=== PATIENT | female | born 2005 | race Caucasian/White ===

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

== ENCOUNTER 2024-07-27 09:27 | Emergency (ER) | payer MEDICAID, SELFPAY ==
[2024-07-27 09:36] VITALS: BP 116/89; PULSE 81; TEMP 36.7; O2SAT 96
--- NOTE | 2024-07-27 11:09 | CT_ITS ---
WS: [id number] CT ABDOMEN AND PELVIS WITH CONTRAST HISTORY: abd pain, LEFT lower quadrant pain TECHNIQUE: Imaging performed of the abdomen and pelvis with IV contrast. Single phase imaging of the abdomen. Coronal and sagittal reformats are submitted. All CT scans at [facility] use at least one of these dose optimization techniques: automated exposure control; mA and/or kV adjustment per patient size (includes targeted exams where dose is matched to clinical indication); or iterative reconstruction. IV CONTRAST: Omnipaque 350; 100 mL IV. Oral contrast: No DLP: 810.56 mGy.cm COMPARISON: 10/22/2023 Lower thorax: Lung bases are clear. Heart is normal size. No hiatal hernia. Liver/biliary system: Normal size with no intrahepatic dilatation. Gallbladder: Normal. No gallstones or wall thickening. No pericholecystic fluid. Pancreas: Normal size pancreas and pancreatic duct. No adjacent inflammation. Spleen: Normal size spleen. No mass or infarct. Adrenal glands: Normal. Right kidney: Horseshoe kidney. No obstruction. Left kidney: Horseshoe kidney. No obstruction. 8 mm cortical cyst upper kidney. Aorta: Normal. Lymphadenopathy: None. Free fluid: None. GI tract: Nondistended stomach. No small bowel obstruction. No colitis. Normal appendix. Abdominal wall: Unremarkable abdominal wall. No hernia. Pelvis: Small amount of free fluid in the pelvis. Small follicles within each ovary. No ovarian enlargement. Uterus is midline. Bones: Unremarkable. CT/CT abdomen pelvis w con* [id number] IMPRESSION: 1. Small amount of physiologic free fluid in the pelvis. May be from a rupture d ovarian cyst. 2. Normal appendix. 3. No colitis. 4. 

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
[2024-07-27] MEDS: ondansetron 2 mg/ML SDV 2 mL 4 MG IVP (11:38)
[2024-07-27] MEDS: morphine 4 mg/mL SDV 1 mL IVP (11:46)
[2024-07-27 11:48] VITALS: BP 139/75; PULSE 70; RESP 16; O2SAT 95
[2024-07-27 11:48] LABS: Basophils % 0.2 %; Eosinophils % 0.1 %; Hematocrit 42.1 % (36-47); Lymphocytes # 1.1 10^3/uL (1.5-6.5); Lymphocytes % 10.5 %; Mean Corpuscular HGB Conc 34.2 g/dL (30-55); Mean Corpuscular Hemoglobin 31.1 pg (27-33); Mean Corpuscular Volume 90.9 fl (85-98); Mean Platelet Volume 10.3 fL (7.4-10.4); Monocytes # 0.8 10^3/uL (0.2-0.9); Monocytes % 7.7 %; Neutrophils # 8.48 10^3/uL (1.8-8.0); Neutrophils % 81.3 %; Nucleated Red Blood Cells % 0 %; Platelet Count 336 10^3/cmm (157-399); Red Blood Count 4.63 10^6/uL (3.85-5.65); Red Cell Distribution Width 12.3 % (12.1-15.1); White Blood Count 10.43 10^3/uL (4.5-13.0)
[2024-07-27 12:06] LABS: HCG, Serum Qual Negative (Negative)
[2024-07-27 12:08] LABS: Alanine Aminotransferase 18 U/L (0-33); Albumin Level 4.4 g/dL (3.5-5.2); Alkaline Phosphatase 82 U/L (35-105); Aspartate Amino Transferase 14 U/L (0-32); Blood Urea Nitrogen 7 mg/dL (6-20); Calcium 9.3 mg/dL (8.5-10.5); Carbon Dioxide 22 mmol/L (22-29); Chloride 105 mmol/L (98-107); Creatinine Clr Calc Pharmacy 176.0218; Globulin 2.9 g/dL (1.3-4.6); Glomerular Filtration Rate 127.5 mL/min (90-130); Glucose 98 mg/dL (65-115); Lipase 21 U/L (13-60); Osmolality Calculated 284 mOsm/kg (285-295); Sodium 138 mmol/L (136-145); Total Bilirubin 0.3 mg/dL (0.15-1.2); Total Protein 7.3 g/dL (6.6-8.7)
[2024-07-27 12:35] VITALS: PULSE 68; RESP 16; O2SAT 98
[2024-07-27 12:54] LABS: Bilirubin Urine Negative (Negative); Blood Urine Negative (Negative); Glucose Urine UA Negative (Normal); Ketones Urine Trace (Negative); Leukocyte Esterase Urine Negative (Negative); Nitrate Urine Negative (Negative); Protein Urine Trace (Negative); Urine Appearance Cloudy (CLEAR); Urine Color Yellow (Yellow); pH Urine 8.5 (5-7)
[2024-07-27] MEDS: iohexol 350 mg/mL 500 mL Btl (per mL) IV (12:54)
[2024-07-27 12:59] LABS: Add Urine Microscopic? YES; Bacteria Urine 3+ /hpf; Hyaline Casts Urine 2.87 /lpf; RBC Urine 0-2 /hpf (0-2); WBC Urine 0-5 /hpf (0-5)
[2024-07-27 13:00] LABS: Specific Gravity, Urine 1.037 (1.005-1.030)
[2024-07-27 13:09] VITALS: BP 122/68; PULSE 74; RESP 16; O2SAT 96
== END 2024-07-27 13:13 | disposition home or self-care (01) ==
PROVIDERS: Physician Assistant; Emergency Provider Emergency Medicine; PCP Nurse Practitioner Family
DX: R11.10 Vomiting, unspecified (principal); R10.9 Unspecified abdominal pain
CPT/HCPCS: 36415; 74177; 80053; 81001; 83690; 84703; 85025; 96374; 96375; 99285; J2270; J2405

== ENCOUNTER 2025-03-16 22:18 | Emergency (ER) | payer MEDICAID, SELFPAY ==
--- OUTSIDE RECORDS SUMMARY | 2025-03-15 14:00 | XMS_ITS | Encounter Summary ---
Author Organization [facility] Address [address] [place] [address] Care Team Providers Care Access Control Officer Name Role Phone Marielos Carrasco Primary Care Provider Reason for Visit * Reason Comments Vomiting Pt states vomiting, headaches, upset stomach, and sinus issues the last 2 days Encounter Details Date Type Department Care Team ([facility] st Contact Info) Description 03/15/2025 2:00 PM CDT Office Visit [facility] [place] [address] [place] [address] [facility] [address] [place] [address] Acute tonsillitis due to other [...] on file Legal Sex Female 6:22 AM HEAD OF STORE OPERATIONS Gender Identity Not on file Sexual Orientation [...] this encounter Progress Notes * Alexy Summers, PROSTHODONTIST - 03/15/2025 2:12 PM CDT Chief Complaint [...] author of this note, patient (or authorized compliance representative), and all other persons present consent to the audio recording of this visit for charting documentation purposes. This note was automatically generated, edited by a Quality Cryptography Teacher, and finalized by JULIANNE Anderson. documented in this encounter Plan of Treatment Upcoming Encounters Date Type Department Care Team (Late st Contact Info) Description 05/13/2025 9:40 AM HEAD OF STORE OPERATIONS Office Visit [facility] [address] [place] [facility] [place] [id number] [place], JULIANNE [address] [place] [facility] [place] [address] Pending Results Name Type Priority Associated Diagnoses Date /Time THROAT CULTURE Microbiology Routine Acute tonsillitis due to other specified organisms 03/15/2025 2:27 PM CDT Scheduled Orders Name Type Priority Associated Diagnoses [...] due to other specified organisms Ordered: 03/15/2025 THROAT CULTURE Microbiology Routine Acute tonsillitis due to other specified organisms Expected: 03/15/2025, Expires: 03/15/2026 documented as of this encounter Visit Diagnoses Diagnosis Acute tonsillitis due to other specified organisms- Primary documented in this encounter Additional Health Concerns Assessment Noted Time PHQ-9 Depression Total Score: 1 12/28/19 25 3:41 PM CDT documented as of this encounter Care Teams Access Control Officer Relationship Specialty Start Date End Date Marielos Carrasco DO [address] [facility] [place] [id number] PCP - General Family Practice 11/20/23 documented as of this encounter
--- OUTSIDE RECORDS SUMMARY | 2025-03-16 22:26 | XMS_ITS | Encounter Summary ---
Author Organization [facility] Address [address] [place] [address] Care Team Providers Care Transmissions Systems Operator Name Role Phone Silverio Brink MD Primary Care Provider [phone] Reason for Referral * Radiology Services (Routine) - Closed Specialty Diagnoses / Procedures Referred By Kar levin Referred To Contact Diagnoses Melena Unspecified abdominal pain Constipation, unspecified Gastro-esophageal reflux disease without esophagitis Nausea Procedures XR ABDOMEN 1 VW Laura Velasco DO Phone: tel: fax: [facility] Centralized Scheduling [address] [facility] [address] [place] [address] Phone: tel: fax: Referral ID Status Reason Start Date Expiration Date V isits Requested Visits Authorized [id number] Closed [facility] View CTS to Schedule ([facility]) 10/07/2019 11/06/2020 1 1 Encounter Details Date Type Department Care Team ([facility] st Contact Info) Description 10/07/2019 Ancillary Orders [facility] [address] [facility] [address] [place] [address] Laura Velasco DO [address] [place] [address] [address] [place] [address] Melena; Unspecified abdominal pain; Constipation, unspecified; Gastro-esophageal reflux disease without esophagitis; Nausea Social History Tobacco Use Types Packs/Day Years Used Date Smoking Tobacco: Never Smokeless Tobacco: Never Alcohol Use Standard Drinks/Week Comments No 0 (1 standard drink = 0.6 oz pur e alcohol) Comments No Sex and Gender Information Value Date Recorded Sex Assigned at Not on file Legal Sex Female 12:43 PM OPTICAL FABRICATOR Gender Identity Not on file Sexual Orientation Not on file Occupation Industry Job Start Date Job End Date Not on file Not on file Not on file Not on file COVID-19 Exposure Response Date Recorded In the last month, have you been in contact with someone who was confirmed or suspected to have Coronavirus / COVID-19? No / Unsure 10/07/2019 1:23 PM CDT documented as of this encounter Plan of Treatment Not on file documented as of this encounter Results * XR ABDOMEN 1 VW (10/07/2019 1:42 PM CDT) Anatomical Region Laterality Modality Abdomen Computed Radiogr aphy 10/07/2019 1:42 PM CDT Impressions 10/07/2019 2:43 PM CDT IMPRESSION: Nonspecific nonobstructive bowel gas pattern. Narrative 10/07/2019 2:43 PM CDT Exam: XR ABDOMEN 1 VW Date/Time of Exam: 10/07/2019 1:42 PM Reason For Exam: See Diagnosis. Diagnosis: Melena; Unspecified abdominal pain; Constipation, unspecified; Gastro-esophageal reflux disease without esophagitis; Nausea. Comparison: 10/09/2011. Findings: he bowel gas pattern is nonspecific without definitive radiographic evidence of obstruction. There is a large amount of stool. No gross organomegaly, mass, free intraperitoneal air or discrete pathologic urinary tract calcifications are identified. The osseous structures appear grossly intact. Procedure Note Nathaniel Monique, DO - 10/07/2019 Exam: XR ABDOMEN 1 VW Date/Time of Exam: 10/07/2019 1:42 PM Reason For Exam: See Diagnosis. Diagnosis: Melena; Unspecified abdominal pain; Constipation, unspecified; Gastro-esophageal reflux disease without esophagitis; Nausea. Comparison: 10/09/2011. Findings: he bowel gas pattern is nonspecific without definitive radiographic evidence of obstruction. There is a large amount of stool. No gross organomegaly, mass, free intraperitoneal air or discrete pathologic urinary tract calcifications are identified. The osseous structures appear grossly intact. IMPRESSION: Nonspecific nonobstructive bowel gas pattern. Laura Velasco DO [facility] Final Result documented in this encounter Visit Diagnoses Diagnosis Melena Blood in stool Unspecified abdominal pain Constipation, unspecified Gastro-esophageal reflux disease without esophagitis Esophageal reflux Nausea Nausea alone Melena Blood in stool Unspecified abdominal pain Constipation, unspecified Gastro-esophageal reflux disease without esophagitis Esophageal reflux Nausea Nausea alone documented in this encounter Care Teams Transmissions Systems Operator Relationship Specialty Start Date End Date Silverio Brink MD PCP - General Internal Medicine 02/05/12 documented as of this encounter
--- OUTSIDE RECORDS SUMMARY | 2025-03-16 22:26 | XMS_ITS | Clinical Summary ---
Author Organization [facility] Address [address] [place] [address] Care Team Providers Care Concrete Layer Name Role Phone Silverio Brink MD Primary Care Provider [phone] Allergies No known active allergies Medications guanFACINE SR 24 hour (INTUNIV) 1 mg Oral tablet Take 4 mg by mouth daily . Active citalopram (CELEXA) 10 mg Oral tablet Take 20 mg by mouth daily . Active methylphenidate (CONCERTA) 36 mg Extended Release tablet Take 160 mg by mouth daily early childhood coordinator. Active diphenhydrAMINE (BENADRYL) 50 mg Tablet Take 25 mg by mouth every 6 hours as needed for Allergies. Active predniSONE (DELTASONE) 20 mg tablet Take 1 Tablet (20 mg) by mouth 2 times daily. 10 Tablet 0 02/22/2016 Active Social History Tobacco Use Types Packs/Day Years Used Date Smoking Tobacco: Never Smokeless Tobacco: Never Alcohol Use Standard Drinks/Week Comments No 0 (1 standard drink = 0.6 oz pur e alcohol) Comments No Sex and Gender Information Value Date Recorded Sex Assigned at Not on file Legal Sex Female 12:43 PM LAB SUPPORT SERVICE TECH Gender Identity Not on file Sexual Orientation Not on file Occupation Industry Job Start Date Job End Date Not on file Not on file Not on file Not on file Last Filed Vital Signs Vital Sign Reading Time Taken Comments Blood Pressure 139/60 02/22/2016 10:51 AM CDT Pulse 99 02/22/2016 10:28 AM CDT Temperature 37.2 C (99 F) 02/22/2016 10:51 AM CDT Respiratory Rate 20 02/22/2016 10:51 AM CDT Oxygen Saturation 98% 02/22/2016 10:51 AM CDT Inhaled Oxygen Concentration - - Weight 53.5 kg (118 lb) 02/22/2016 9:25 AM CDT Height 154.9 cm (5' 1 ) 01/08/2016 11:35 AM CDT Body Mass Index - - Plan of Treatment Health Maintenance Due Date Last Done Comments CHLAMYDIA SCREENING (ANNUAL) 11-24 YEARS 2015 HPV VACCINES (1 - 3-dose series) 2019 DTAP/TDAP/TD VACCINES (1 - Tdap) 2023 HEPATITIS B VACCINES (1 of 3 - 19+ 3-dose series) 03/24 INFLUENZA VACCINE (#1) 2025 Insurance [place]ID [place] Care Teams Concrete Layer Relationship Specialty Start Date End Date Silverio Brink MD PCP - General Internal Medicine 02/05/12
--- OUTSIDE RECORDS SUMMARY | 2025-03-16 22:26 | XMS_ITS | Clinical Summary ---
Author Organization [facility] Address [address] Munozn: [place] [address] Care Team Providers Care Manager Nicu Name Role Phone Marielos Carrasco Primary Care Provider Allergies Active Allergy Reactions Criticality Noted Date Comments Alpha-Gal (Fubweupxs-Szdll-6,3-Galactose) Abdominal Pain Low 12/01/2023 Medications citalopram 20 mg tablet Take 20 mg by mouth daily at bedtime. Active ARIPiprazole (ABILIFY) 5 mg tabletIndications :PTSD (post-traumatic stress disorder),Attenti on deficit hyperactivity disorder (ADHD), combined type,Borderline personality disorder (CMS/HCC) Take 1 Tablet (5 mg) by mouth daily. 100 Tablet 3 02/11/20 25 Active Drospirenone-Ethi nyl estradiol (Angelika, 28,) 3-0.02 mg tabletIndications :Secondary dysmenorrhea Take 1 Tablet by mouth daily. 28 Tablet 12 02/11/20 25 Active Additional Information Patient not taking.Reported on 03/15/2025 EPINEPHrine (EPIPEN) 0.3 mg/0.3 mL Auto-InjectorIndi cations:Allergy to alpha-gal Inject 0.3 mL (0.3 mg) by intramuscular injection 1 time daily as needed for Anaphylaxis. 2 Each 02/11/20 Active Additional Information Patient not taking.Reported on 03/15/2025 albuterol sulfate HFA 90 mcg/actuation aerosol inhalerIndication s:Mild asthma, unspecified whether complicated, unspecified whether persistent Take 2 Puffs by inhalation every 6 hours as needed for Wheezing or Shortness of Breath. 8.5 Gram 1 02/16/20 25 Active amoxicillin (AMOXIL) 500 mg TabletIndications :Acute tonsillitis due to other specified organisms Take 1 Tablet (500 mg) by mouth every 12 hours for 10 days. 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 Generalized abdominal pain 11/20/2023 PTSD (post-traumatic stress disorder) 10/19/2023 Resolved Problems Problem Noted Date Diagnosed Date Resolved Date Sprain of left ankle 09/25/2023 024 Encounters Date Type Department Care Team Description 03/15/2025 2:00 PM CDT Office Visit [facility] [address] [place] [address] Alexy Summers FNP Acute tonsillitis due to other specified organisms (Primary Dx) 03/15/2025 Nurse Triage [facility] [address] [place] [address] Marielos Carrasco DO 02/23/2025 External Device Data STL ABSTRACTION Provider, Abstract 02/16/2025 External Device Data STL ABSTRACTION Provider, Abstract 02/10/2025 12:40 PM CDT Office Visit [facility] [address] [facility] [place] [address] Alexy Summers FNP Secondary dysmenorrhea (Primary Dx); Borderline personality disorder (CMS/HCC) 02/10/2025 Telephone [facility] [address] [facility] [place] [address] Marielos Carrasco, Medication Assistance 02/10/2025 Refill [facility] [address] [facility] [place] [id number] Alexy Summers, JULIANNE PTSD (post-traumatic stress disorder); Attention deficit hyperactivity disorder (ADHD), combined type; Borderline personality disorder (CMS/HCC) 02/09/2025 External Device Data STL ABSTRACTION Provider, Abstract 01/05/2025 External Device Data STL ABSTRACTION Provider, Abstract 01/05/2025 External Device Data STL ABSTRACTION Provider, Abstract 01/05/2025 External Device Data STL ABSTRACTION Provider, Abstract 01/05/2025 External Device Data STL ABSTRACTION Provider, Abstract 12/29/2024 Results Follow-Up [address] [address] Lynette Velazquez FNP CBC WITH DIFFERENTIAL, COMPREHENSIVE METABOLIC PANEL 12/27/2024 3:40 PM CDT Office Visit [address] [id number] Lynette Velazquez FNP Nausea and vomiting, unspecified vomiting type (Primary Dx); Mild asthma, unspecified whether complicated, unspecified whether persistent 12/21/2024 External Device Data STL ABSTRACTION Provider, Abstract from Last 3 Months Social History Tobacco Use Types Packs/Day Years Used Date Smoking Tobacco: Every Day Cigarettes Smokeless Tobacco: Never Tobacco Cessation:Ready to Q uit: Not Asked; Counseling Given: Not Answered Comments:Stated just quit cigarettes within the last week Alcohol Use Standard Drinks/Week Comments No 0 (1 standard drink = 0.6 oz pur e alcohol) Feeling Safe Answer Date Recorded Are you in a relationship wi th someone who hurts you emotionally and/or physically? No 08/29/2024 Comments No Sex and Gender Information Value Date Recorded Sex Assigned at Not on file Legal Sex Female 6:22 AM LINK TRAINER Gender Identity Not on file Sexual Orientation Not on file Last Filed Vital Signs [...] Mass Index 42.43 03/15/2025 1:46 PM CDT Plan of Treatment Upcoming Encounters Date Type Department Care Team (Late st Contact Info) Description 05/13/2025 9:40 AM LINK TRAINER Office Visit [facility] [address] [place] [address] Peace, September, THEATRICAL SCENIC DESIGNER [address] [place] [address] Health Maintenance Due Date Last Done Comments CHLAMYDIA SCREENING (ANNUAL) 11-24 YEARS 2015 HPV VACCINES (1 - 3-dose series) 2019 DTAP/TDAP/TD VACCINES (1 - Tdap) 2023 HEPATITIS B VACCINES (1 of 3 - 19+ 3-dose series) 03/24 Preventative Visit-Managed Medicaid 2023 INFLUENZA VACCINE (#1) 2025 Procedures Procedure Name Priority Date/Time Associated Diagnosis Comments COMPREHENSIVE METABOLIC PANEL Routine 12/27/2024 4:09 PM CDT Nausea and vomiting, unspecified vomiting type CBC WITH DIFFERENTIAL Routine 12/27/2024 4:09 PM CDT Nausea and vomiting, unspecified vomiting type from Last 3 Months Results * CBC WITH DIFFERENTIAL (12/27/2024 4:09 PM CDT) WBC 9.5 3.8 - 10.8 Thousand/u L [facility] RBC 4.66 3.80 - 5.10 Million/uL [facility] HEMOGLOBIN 14.8 11.7 - 15.5 g/dL [facility] HEMATOCRIT 44.4 35.0 - 45.0 % [facility] MCV 95.3 80.0 - 100.0 fL [facility] MCH 31.8 27.0 - 33.0 pg [facility] MCHC 33.3 32.0 - 36.0 g/dL [facility] Comment: For adults, a slight decrease in the calculated MCHC value (in the range of 30 to 32 g/dL) is most likely not clinically significant; however, it should be interpreted with caution in correlation with other red cell parameters and the patient's clinical condition. RDW 12.9 11.0 - 15.0 % [facility] PLATELETS 364 140 - 400 Thousand/u L [facility] MPV 10.5 7.5 - 12.5 fL [facility] NEUTROPHIL ABSOLUTE 6,460 1,500 - 7,800 cells/uL [facility] LYMPHOCYTE ABSOLUTE 2,138 850 - 3,900 cells/uL [facility] MONOCYTE ABSOLUTE 817 200 - 950 cells/uL [facility] EOSINOPHIL ABSOLUTE 57 15 - 500 cells/uL [facility] BASOPHILS ABSOLUTE 29 0 - 200 cells/uL [facility] NEUTROPHIL 68 % [facility] LYMPHOCYTES 22.5 % [facility] MONOCYTE 8.6 % [facility] EOSINOPHILS 0.6 % [facility] BASOPHILS 0.3 % [facility] Comment: Test Performed at: [facility] [address] [place] [address] Nirmal Mendez MD Blood 12/27/2024 4:09 PM CDT 12/29/2024 3:08 AM CDT us Lynette Velazquez THEATRICAL SCENIC DESIGNER HEMATOLOGY ORDERABLES Final Result [facility] [phone] [facility] [id number] [facility] [place] [address] * COMPREHENSIVE METABOLIC PANEL (12/27/2024 4:09 PM CDT) GLUCOSE 84 65 - 99 mg/dL [facility] Comment: Fasting reference interval BUN 12 7 - 25 mg/dL [facility] CREATININE 0.87 0.50 - 0.96 mg/dL [facility] GFR 98 > OR = 60 mL/min/1. 73m2 [facility] BUN/CREAT RATIO SEE NOTE: 6 - 22 (calc) [facility] Comment: Not Reported: BUN and Creatinine are within reference range. SODIUM 139 135 - 146 mmol/L [facility] POTASSIUM 4.2 3.5 - 5.3 mmol/L [facility] CHLORIDE 107 98 - 110 mmol/L [facility] CO2 23 20 - 32 mmol/L [facility] CALCIUM 9.5 8.6 - 10.2 mg/dL [facility] TOTAL PROTEIN 7.0 6.1 - 8.1 g/dL [facility] ALBUMIN 4.4 3.6 - 5.1 g/dL [facility] GLOBULIN 2.6 1.9 - 3.7 g/dL (calc) [facility] ALBUMIN/GLOBULIN RATIO 1.7 1.0 - 2.5 (calc) [facility] BILIRUBIN TOTAL 0.4 0.2 - 1.2 mg/dL [facility] ALKALINE PHOSPHATASE 81 31 - 125 U/L [facility] AST 14 10 - 30 U/L [facility] ALT 20 6 - 29 U/L [facility] Comment: Test Performed at: [facility] [address] [place] [address] Nirmal Mendez MD Blood 12/27/2024 4:09 PM CDT 12/29/2024 3:08 AM CDT Lynette Velazquez THEATRICAL SCENIC DESIGNER CHEMISTRY ORDERABLES Final Result [facility] [phone] [facility] [address] [place] [address] from Last 3 Months Insurance [place] Care Teams Manager Nicu Relationship Specialty Start Date End Date Marielos Carrasco DO [address] [place] [address] PCP - General Family Practice 11/20/23
--- OUTSIDE RECORDS SUMMARY | 2025-03-16 22:26 | XMS_ITS | Encounter Summary ---
Author Organization [facility] Address [address] [place] [address] Care Team Providers Care Hand Roller Name Role Phone Marielos Carrasco DO Primary Care Provider Reason for Visit * Reason Comments Clinical Consult Before Scheduling Encounter Details Date Type Department Care Team (Late st Contact Info) Description 03/15/2025 Nurse Triage [facility] [place] [address] [place] [address] Marielos Carrasco DO [address] [place] [address] Social History Tobacco Use Types Packs/Day Years [...] on file Legal Sex Female 6:22 AM SIGNAL HELPER Gender Identity Not on file Sexual Orientation Not on file documented as of this encounter Miscellaneous Notes * Telephone Encounter - Lauren Pringle RN - 03/15/2025 11:45 AM CDT Reason for Disposition Patient wants to be seen Protocols used: Influenza (Flu) - Acbmasir-I-MY Patient reports having nausea, vomiting, headache, sinus congestion, and she believes a fever but doesn't have a way to check it. Is requesting appointment to be evaluated for the flu. Appointment arranged, advised patient to wear mask for appointment. See Today or Tomorrow in Office * Telephone Encounter - Halley Borges - 03/15/2025 11:42 AM CDT Copied from [facility] #[id number]. Topic: Symptomatic Care >> Mar 15, 2025 11:38 AM Halley Stephenson wrote: Has this patient seen any provider (current or former) at the requested clinic in the past? Yes, Select the appropriate age range and symptom Patient has symptoms and is seeking care. Caller Name: BAR Callback Number: [phone] Call Notes: Patient said she is having vomiting , nausea, sinus issues, chills and headache. Age Range/Symptom: Adult: 18+ & not High Risk Upper respiratory symptoms (cold, cough, COVID, fever, flu, hay fever, sinus problems, seasonal allergies Does patient have any of the following other urgent symptoms: Headache or Migraine - sudden onset and severe Is there an encounter open? No Transferred to Oscar Yuan answered call. Yes, Remind caller to have the patient wear a mask when entering a [facility] (or any healthcare) facility. documented in this encounter Plan of Treatment Upcoming Encounters Date Type Department Care Team (Late st Contact Info) Description 05/13/2025 9:40 AM SIGNAL HELPER Office Visit [facility] [place] [address] [place] [address] PeaceSeptember, BUS AND TROLLEY INSPECTING DISPATCHER [address] [facility] [phone] documented as of this encounter Visit Diagnoses Not on filedocumented in this encounter Additional Health Concerns Assessment Noted Time PHQ-9 Depression Total Score: 1 12/28/19 25 3:41 PM CDT documented as of this encounter Care Teams Hand Roller Relationship Specialty Start Date End Date Marielos Carrasco DO [address] [place] [address] PCP - General Family Practice 11/20/23 documented as of this encounter
--- OUTSIDE RECORDS SUMMARY | 2025-03-16 22:26 | XMS_ITS | Encounter Summary ---
Author Organization [facility] Address [address] [place] [address] Care Team Providers Care Medical Affairs Specialist Name Role Phone Silverio Brink MD Primary Care Provider [phone] Encounter Details Date Type Department Care Team (Late st Contact Info) Description 10/09/2011 [facility] [place] [address] [place] [phone] Danae Steele, NUMERICAL CONTROL LATHE OPERATOR [address] [place] [phone] Diarrhea Social History Tobacco Use Types Packs/Day Years Used Date Smoking Tobacco: Never Assessed Comments Unknown Sex and Gender Information Value Date Recorded Sex Assigned at Not on file Legal Sex Female 12:43 PM SUPERVISOR COLOR PASTE MIXING Gender Identity Not on file Sexual Orientation Not on file documented as of this encounter Plan of Treatment Not on file documented as of this encounter Results * XR ABDOMEN 1 VW (10/09/2011 2:12 PM CDT) Anatomical Region Laterality Modality Abdomen Computed Radiogr aphy 10/09/2011 2:08 PM CDT Narrative 10/10/2011 9:27 AM CDT Supine abdomen view 1408 hours 09 October 2011 shows moderate fecal artifact in the left colon and rectosigmoid with minimal fecal artifact in the right colon. There is some gas in the right mid abdomen probably representing small bowel gas, although no obstructive distention is seen. No abdominal masses or calculi are seen. Bony structures appear normal. IMPRESSION 1. slightly increased record residual predominately in the rectosigmoid 2. no obstructive distention seen 3. minimal small bowel gas noted Procedure Note Walter Moore MD - 10/10/2011 Supine abdomen view 1408 hours 09 October 2011 shows moderate fecal artifact in the left colon and rectosigmoid with minimal fecal artifact in the right colon. There is some gas in the right mid abdomen probably representing small bowel gas, although no obstructive distention is seen. No abdominal masses or calculi are seen. Bony structures appear normal. IMPRESSION 1. slightly increased record residual predominately in the rectosigmoid 2. no obstructive distention seen 3. minimal small bowel gas noted us Danae G Ivette NUMERICAL CONTROL LATHE OPERATOR DIAGNOSTIC IMAGING ORDERABLES F inal Result documented in this encounter Visit Diagnoses Diagnosis Diarrhea Diarrhea documented in this encounter Care Teams Medical Affairs Specialist Relationship Specialty Start Date End Date Silverio Brink MD PCP - General Internal Medicine 02/05/12 documented as of this encounter
[2025-03-16 22:35] VITALS: BP 146/97; PULSE 88; RESP 18; TEMP 36.9; O2SAT 97; BMI 42.4
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
[2025-03-16] MEDS: ondansetron 2 mg/ML SDV 2 mL 4 MG IVP (23:08)
[2025-03-16 23:09] VITALS: BP 133/73; PULSE 78; O2SAT 99
[2025-03-16 23:09] LABS: Hematocrit 40.3 % (36-47); Hemoglobin 13.80 g/dL (12.4-14.8); Mean Corpuscular HGB Conc 34.2 g/dL (30-55); Mean Corpuscular Hemoglobin 30.7 pg (27-33); Mean Corpuscular Volume 89.8 fl (85-98); Nucleated Red Blood Cells % 0 %; Platelet Count 319 10^3/cmm (157-399); Red Blood Count 4.49 10^6/uL (3.85-5.65); White Blood Count 11.89 10^3/uL (4.5-13.0)
[2025-03-16 23:24] LABS: HCG, Serum Qual Negative (Negative)
[2025-03-17 00:05] LABS: Alanine Aminotransferase 17 U/L (0-33); Albumin Level 4.5 g/dL (3.5-5.2); Alkaline Phosphatase 83 U/L (35-105); Anion Gap 14.3 (5-19); Aspartate Amino Transferase 12 U/L (0-32); Blood Urea Nitrogen 9 mg/dL (6-20); Calcium 9.2 mg/dL (8.5-10.5); Carbon Dioxide 25 mmol/L (22-29); Chloride 103 mmol/L (98-107); Creatinine Clr Calc Pharmacy 137.4783; Globulin 3.0 g/dL (1.3-4.6); Glucose 85 mg/dL (65-115); Lipase 16 U/L (13-60); Osmolality Calculated 286 mOsm/kg (285-295); Potassium 3.3 mmol/L (3.5-5.1); Sodium 139 mmol/L (136-145); Total Protein 7.5 g/dL (6.6-8.7)
[2025-03-17 00:29] VITALS: BP 131/72; PULSE 78; O2SAT 98
== END 2025-03-17 00:35 | disposition home or self-care (01) ==
PROVIDERS: Emergency Provider Emergency Medicine; PCP Nurse Practitioner Family
DX: R10.84 Generalized abdominal pain (principal)
CPT/HCPCS: 80053; 83690; 84703; 85025; 96361; 96374; 96375; 99284; J1885; J2405; J7030

== ENCOUNTER 2025-03-17 15:00 | Emergency (ER) | payer MEDICAID, SELFPAY ==
--- OUTSIDE RECORDS SUMMARY | 2025-03-15 14:00 | XMS_ITS | Encounter Summary ---
Author Organization [facility] Address [address] [place] [address] Care Team Providers Care Instructor Hairspring Name Role Phone Marielos Carrasco Primary Care Provider Reason for Visit * Reason Comments Vomiting Pt states vomiting, headaches, upset stomach, and sinus issues the last 2 days Encounter Details Date Type Department Care Team ([facility] st Contact Info) Description 03/15/2025 2:00 PM CDT Office Visit [facility] [place] [address] [place] [address] [facility] [address] [place] [address] Acute tonsillitis due to other specified organisms (Primary Dx) Social History Tobacco Use Types Packs/Day Years Used Date Smoking Tobacco: Every Day Cigarettes Smokeless Tobacco: Never Comments:Stated just quit ci garettes within the last week Alcohol Use Standard Drinks/Week Comments No 0 (1 standard drink = 0.6 oz pur e alcohol) Feeling Safe Answer Date Recorded Are you in a relationship wi th someone who hurts you emotionally and/or physically? No 08/29/2024 Comments No Sex and Gender Information Value Date Recorded Sex Assigned at Not on file Legal Sex Female 6:22 AM WIND DEVELOPMENT DIRECTOR Gender Identity Not on file Sexual Orientation Not on file documented as of this encounter Last Filed Vital Signs Vital Sign Reading Time Taken Comments Blood Pressure 128/66 03/15/2025 1:46 PM CDT Pulse 100 03/15/2025 1:46 PM CDT Temperature 36.1 C (97 F) 03/15/2025 1:46 PM CDT Respiratory Rate 18 03/15/2025 1:46 PM CDT Oxygen Saturation 96% 03/15/2025 1:46 PM CDT Inhaled Oxygen Concentration - - Weight 112.1 kg (247 lb 3.2 oz) 03/15/2025 1:46 PM CDT Height 162.6 cm (5' 4 ) 03/15/2025 1:46 PM CDT Body Mass Index 42.43 03/15/2025 1:46 PM CDT documented in this encounter Progress Notes * Alexy Summers, BOLTING MACHINE OPERATOR - 03/15/2025 2:12 PM CDT Chief Complaint Patient presents with Vomiting Pt states vomiting, headaches, upset stomach, and sinus issues the last 2 days Patient Active Problem List Diagnosis Code PTSD (post-traumatic stress disorder) F43.10 ADHD (attention deficit hyperactivity disorder) F90.9 Borderline personality disorder (CMS/HCC) F60.3 Sensory integration dysfunction F88 Generalized abdominal pain R10.84 Allergy to alpha-gal 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 She reports no recent sick contacts, except for a brief interaction with a neighbor a week ago. In addition to these symptoms, she is experiencing a sore throat, mildcough, and slight ear discomfort. She also mentioned attempting self-cleaning of her ears. 10 point review of systems is otherwise negative except as mentioned above. Past Medical History: Diagnosis Date ADHD (attention deficit hyperactivity disorder) Borderline personality disorder (CMS/HCC) PTSD (post-traumatic stress disorder) Sensory integration dysfunction Current Outpatient Medications Medication Instructions albuterol sulfate HFA 90 mcg/actuation aerosol inhaler 2 Puffs, Inhalation, EVERY 6 HOURS PRN amoxicillin (AMOXIL) 500 mg, Oral, EVERY 12 HOURS (BlD) ARIPiprazole (ABILIFY) 5 mg, Oral, DAILY citalopram (CELEXA) 20 mg, DAILY AT BEDTIME Drospirenone-Ethinyl estradiol (Angelika, 28,) 3-0.02 mg tablet 1 Tablet, Oral, DAILY EPINEPHrine (EPIPEN) 0.3 mg, IM, DAILY PRN Past Surgical History: Procedure Laterality Date PT DENIES RELEVANT SURGICAL HISTORY Past social, family, and medical history reviewed. BP 128/66 Pulse 100 Temp 97 ??F (36.1 ??C) Resp 18 Ht 5' 4 (1.626 m) Wt 112.1 kg (247 lb3.2 oz) SpO2 96% BMI 42.43 kg/m?? Physical Exam Constitutional: Appearance: Normal appearance. HENT: Right Ear: Tympanic membrane, ear canal and external ear normal. There is no impacted cerumen. Left Ear: Tympanic membrane, ear canal and external ear normal. There is no impacted cerumen. Nose: No congestion. Mouth/Throat: Mouth: Mucous membranes are moist. Pharynx: Posterior oropharyngeal erythema present. Tonsils: Tonsillar exudate present. 1+ on the right. Eyes: Conjunctiva/sclera: Conjunctivae normal. Pupils: Pupils are equal, round, and reactive to light. Cardiovascular: Rate and Rhythm: Normal rate and regular rhythm. Heart sounds: No murmur heard. Pulmonary: Effort: Pulmonary effort is normal. No respiratory distress. Musculoskeletal: General: Normal range of motion. Skin: General: Skin is warm and dry. Neurological: Mental Status: She is alert and oriented to person, place, and time. Psychiatric: Mood and Affect: Mood normal. Behavior: Behavior normal. ICD-10-CM ICD-9-CM 1. Acute tonsillitis due to other specified organisms J03.80 463 POC COVID-19 ANTIGEN POC INFLUENZA A AND B ANTIGEN POC RAPID STREP A ANTIGEN THROAT CULTURE amoxicillin (AMOXIL) 500 mg Tablet Assessment & Plan Pharyngitis - Symptoms: Sore throat, mild cough, throat erythema with white spots - Normal heart, lung, and ear exam - POC strep A, COVID-19, and influenza all chemic negative - Due to physical examination of inflamed throat with exudate, will send throat culture off for further testing - Prescribed amoxicillin BID for 10 days - Symptom management: ibuprofen or Tylenol, salt water gargles, hydration - Work note provided Follow-up - Throat culture results expected by later this week; discontinue antibiotic if negative JO Sahu The author of this note, patient (or authorized registration representative), and all other persons present consent to the audio recording of this visit for charting documentation purposes. This note was automatically generated, edited by a Quality Route Sales Person, and finalized by JULIANNE Anderson. documented in this encounter Plan of Treatment Upcoming Encounters Date Type Department Care Team (Late st Contact Info) Description 05/13/2025 9:40 AM WIND DEVELOPMENT DIRECTOR Office Visit [facility] [address] [place] [address] [place], [place], JULIANNE [address] [place] [address] Scheduled Orders Name Type Priority Associated Diagnoses Orde r Schedule POC COVID-19 ANTIGEN Point of Care Testing Routine Acute tonsillitis due to other specified organisms Ordered: 03/15/2025 POC INFLUENZA A AND B ANTIGEN Point of Care Testing Routine Acute tonsillitis due to other specified organisms Ordered: 03/15/2025 POC RAPID STREP A ANTIGEN Point of Care Testing Routine Acute tonsillitis due to other specified organisms Ordered: 03/15/2025 documented as of this encounter Procedures Procedure Name Priority Date/Time Associated Diagnosis Comments THROAT CULTURE Routine 03/15/2025 2:27 PM CDT Acute tonsillitis due to other specified organisms documented in this encounter Results * THROAT CULTURE (03/15/2025 2:27 PM CDT) THROAT CULTURE SEE NOTE [facility] Comment: CULTURE, THROAT Micro Number: [id number] Test Status: Final Specimen Source: Throat Specimen Quality: Adequate Result: Heavy growth of Beta-hemolytic Streptococcus, not group A,C or G Beta-hemolytic streptococci are predictably susceptible to Penicillin and other beta-lactams. Susceptibility testing not routinely performed. Please contact the laboratory within 3 days if susceptibility testing is desired. COMMENT: Normal oropharyngeal tabby also present. Test Performed at: [facility] [address] [place] [address] Nirmal Mendez MD Upper Respiratory SPECIMEN FROM THROAT / Unknown 03/15/2025 2:27 PM CDT 03/16/2025 5:00 AM CDT Alexy Summers BOLTING MACHINE OPERATOR MICROBIOLOGY - GENERAL ORD ERABLES Final Result [facility] [phone] [facility] [address] [place] [address] documented in this encounter Visit Diagnoses Diagnosis Acute tonsillitis due to other specified organisms- Primary documented in this encounter Additional Health Concerns Assessment Noted Time PHQ-9 Depression Total Score: 1 12/28/19 25 3:41 PM CDT documented as of this encounter Care Teams Instructor Hairspring Relationship Specialty Start Date End Date Marielos Carrasco DO [address] [place] [address] PCP - General Family Practice 11/20/23 documented as of this encounter
[2025-03-17 15:00] VITALS: BP 149/100; PULSE 94; RESP 18; TEMP 36.7; O2SAT 94
--- NOTE | 2025-03-17 15:22 | CTR_ITS ---
PROCEDURE INFORMATION: Exam: CT Abdomen And Pelvis Without Contrast Exam date and time: 03/17/2025 3:53 PM Age: 19 years old Clinical indication: Abdominal pain; Localized; Lower TECHNIQUE: Imaging protocol: Computed tomography of the abdomen and pelvis without contrast. Radiation optimization: All CT scans at this facility use at least one of these dose optimization techniques: automated exposure control; mA and/or kV adjustment per patient size (includes targeted exams where dose is matched to clinical indication); or iterative reconstruction. COMPARISON: CT abdomen pelvis w con* [id number] 07/27/2024 12:25 PM RADIATION DOSE METRICS: Total DLP (mGy-cm): 987.63 FINDINGS: Liver: Normal. No mass. Gallbladder and biliary ducts: Normal. No calcified stones. No ductal dilation. Pancreas: Normal. No ductal dilation. Spleen: Normal. No splenomegaly. Adrenal glands: Normal. No mass. Kidneys and ureters: Redemonstrated horseshoe kidney. Stable subcentimeter left renal cortical cyst. No hydronephrosis bilaterally. Stomach and bowel: Unremarkable. No obstruction. No mucosal thickening. Appendix: No evidence of appendicitis. Intraperitoneal space: Unremarkable. No free air. No significant fluid collection. Vasculature: Unremarkable. No abdominal aortic aneurysm. Lymph nodes: Unremarkable. No enlarged lymph nodes. Urinary bladder: Unremarkable as visualized. Reproductive: Unremarkable as visualized. Bones/joints: Unremarkable. No acute fracture. Soft tissues: Unremarkable. CT/CT abdomen pelvis con [id number] IMPRESSION: No acute findings.
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
--- OUTSIDE RECORDS SUMMARY | 2025-03-17 16:35 | XMS_ITS | Encounter Summary ---
Author Organization [facility] Address [address] [place] [address] Care Team Providers Care Solar Energy Sales Specialist Name Role Phone Marielos Carrasco Primary Care Provider Encounter Details Date Type Department Care Team ([facility] Contact Info) Description 03/17/2025 Results Follow-Up [facility] [address] [place] [address] Alexy Summers, 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 [address] [place] [phone] Nata September, [facility] [place] [address] [place] [address] documented as of this encounter Visit Diagnoses Not on filedocumented in this encounter Additional Health Concerns Assessment Noted Time PHQ-9 Depression Total Score: 1 12/28/19 25 3:41 PM CDT documented as of this encounter Care Teams Solar Energy Sales Specialist Relationship Specialty Start Date End Date Marielos Carrasco DO [address] [place] [address] PCP - General Family Practice 11/20/23 documented as of this encounter
--- OUTSIDE RECORDS SUMMARY | 2025-03-17 16:35 | XMS_ITS | Clinical Summary ---
Author Organization [facility] Address [address] [place] [address] Care Team Providers Care Nitro Worker Name Role Phone Silverio Brink MD Primary Care Provider [phone] Allergies No known active allergies Medications guanFACINE SR 24 hour (INTUNIV) 1 mg Oral tablet Take 4 mg by mouth daily . Active citalopram (CELEXA) 10 mg Oral tablet Take 20 mg by mouth daily . Active methylphenidate (CONCERTA) 36 mg Extended Release tablet Take 160 mg by mouth daily machine pan greaser. 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
--- OUTSIDE RECORDS SUMMARY | 2025-03-17 16:35 | XMS_ITS | Encounter Summary ---
Author Organization [facility] Address [address] [place] [address] Care Team Providers Care Administrative Receptionist Name Role Phone Silverio Brink MD Primary Care Provider [phone] Encounter Details Date Type Department Care Team (Late st Contact Info) Description 10/09/2011 [facility] [place] [address] [place] [id number] Danae Steele, TRAY CHECKER [address] [place] [id number] Diarrhea Social History Tobacco Use Types Packs/Day Years Used Date Smoking Tobacco: Never Assessed Comments Unknown Sex and Gender Information Value Date Recorded Sex Assigned at Not on file 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
--- OUTSIDE RECORDS SUMMARY | 2025-03-17 16:35 | XMS_ITS | Encounter Summary ---
Author Organization [facility] Address [address] [place] [address] Care Team Providers Care Tube Room Supervisor Name Role Phone Marielos Carrasco DO Primary Care Provider [phone] Reason for Visit * Reason Comments Clinical Consult Before Scheduling Encounter Details Date Type Department Care Team (Late st Contact Info) Description 03/15/2025 Nurse Triage [facility] [place] [address] [place] [address] Marielos Carrasco DO [address] [place] [address] Social History Tobacco Use Types [...] on file Legal Sex Female 6:22 AM ANESTHESIOLOGIST Gender Identity Not on file Sexual Orientation Not on file documented as of this encounter Miscellaneous Notes * Telephone Encounter - Lauren Pringle RN - 03/15/2025 11:45 AM CDT Reason for Disposition Patient wants to be seen Protocols used: Influenza (Flu) - Rdaxbcum-E-YO Patient reports having nausea, vomiting, headache, sinus congestion, and she believes a fever but doesn't have a way to check it. Is requesting appointment to be evaluated for the flu. Appointment arranged, advised patient to wear mask for appointment. See Today or Tomorrow in Office * Telephone Encounter - Halley Borges - 03/15/2025 11:42 AM CDT Copied from [facility] #[id number]. Topic: Symptomatic Care >> Mar 15, 2025 11:38 AM Halley Stephenson wrote: Has this patient seen any provider (current or former) at the requested clinic in the past? Yes, Select the appropriate age range and symptom Patient has symptoms and is seeking care. Caller Name: BAR Callback Number: [phone] Call Notes: Patient said she is having [...] patient wear a mask when entering a [facility] (or any healthcare) facility. documented in this encounter Plan of Treatment Upcoming Encounters Date Type Department Care Team (Late st Contact Info) Description 05/13/2025 9:40 AM ANESTHESIOLOGIST Office Visit [facility] Medicine [place] [address] [place] [phone] PeaceSeptember, CORE LAYER MACHINE OPERATOR [address] [place] [facility] [facility] [place] [phone] documented as of this encounter Visit Diagnoses Not on filedocumented in this encounter Additional Health Concerns Assessment Noted Time PHQ-9 Depression Total Score: 1 12/28/19 25 3:41 PM CDT documented as of this encounter Care Teams Tube Room Supervisor Relationship Specialty Start Date End Date Marielos Carrasco DO [address] [place] [address] PCP - General Family Practice 11/20/23 documented as of this encounter
--- OUTSIDE RECORDS SUMMARY | 2025-03-17 16:35 | XMS_ITS | Encounter Summary ---
Author Organization [facility] Address [address] [place] [address] Care Team Providers Care Technology Auditor Name Role Phone Silverio Brink MD Primary Care Provider [phone] Reason for Referral * Radiology Services (Routine) - Closed Specialty Diagnoses / Procedures Referred By Kar levin Referred To Contact Diagnoses Melena Unspecified abdominal pain Constipation, unspecified Gastro-esophageal reflux disease without esophagitis Nausea Procedures XR ABDOMEN 1 VW Laura Velasco DO Phone: tel: fax: [facility] Centralized Scheduling [address] [place] [address] Phone: tel: fax: Referral ID Status Reason Start Date Expiration Date V isits Requested Visits Authorized [id number] Closed [facility] to Schedule ([facility]) 10/07/2019 11/06/2020 1 1 Encounter Details Date Type Department Care Team ([facility] st Contact Info) Description 10/07/2019 Ancillary Orders [facility] [address] [place] [address] Laura Velasco DO [address] [place] [address] [address] [place] [address] Melena; Unspecified abdominal pain; Constipation, [...] on file 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
--- OUTSIDE RECORDS SUMMARY | 2025-03-17 16:35 | XMS_ITS | Clinical Summary ---
Author Organization [facility] Address [address] [place]ozn: [place] [address] Care Team Providers Care Parent Trainer Name Role Phone Marielos Carrasco Primary Care Provider Allergies Active Allergy Reactions Criticality Noted Date Comments Alpha-Gal (Vdgfgwyxr-Gjack-7,3-Galactose) Abdominal Pain Low 12/01/2023 Medications citalopram 20 [...] Encounters Date Type Department Care Team Description 03/17/2025 Results Follow-Up [facility] [address] [facility] [address] Alexy Summers FNP THROAT CULTURE 03/15/2025 2:00 PM CDT Office Visit [facility] [address] [facility] [address] Alexy Summers FNP Acute tonsillitis due to other specified organisms (Primary Dx) 03/15/2025 Nurse Triage [facility] [address] [facility] [address] Marielos Carrasco DO 02/23/2025 External Device Data STL ABSTRACTION Provider, Abstract 02/16/2025 External Device Data ST[facility] ABSTRACTION Provider, Abstract 02/10/2025 12:40 PM CDT Office Visit [facility] [address] [facility] [address] Alexy Summers FNP Secondary dysmenorrhea (Primary Dx); Borderline personality disorder (CMS/HCC) 02/10/2025 Telephone [facility] [address] [facility] [phone] Marielso Carrasco, DO Medication Assistance 02/10/2025 Refill [facility] [address] [place] [phone] Alexy Summers FNP PTSD (post-traumatic stress disorder); Attention deficit hyperactivity disorder (ADHD), combined type; Borderline personality disorder (CMS/HCC) 02/09/2025 External Device Data STL ABSTRACTION Provider, Abstract 01/05/2025 External Device Data STL ABSTRACTION Provider, Abstract 01/05/2025 External Device Data STL ABSTRACTION Provider, Abstract 01/05/2025 External Device Data ST[facility] ABSTRACTION Provider, Abstract 01/05/2025 External Device Data STL ABSTRACTION Provider, Abstract 12/29/2024 Results Follow-Up [address] [phone] Lynette Velazquez FNP CBC WITH DIFFERENTIAL, COMPREHENSIVE METABOLIC PANEL 12/27/2024 3:40 PM CDT Office Visit [address] [phone] Lynette Velazquez FNP Nausea and vomiting, unspecified [...] on file 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 Gender Identity Not on file Sexual Orientation [...] st Contact Info) Description 05/13/2025 9:40 AM UTILITY WORKER Office Visit [facility] [address] [place] [address] PeaceSeptember, EXTRUDING DEPARTMENT SUPERVISOR [address] [place] [address] Health Maintenance Due Date Last [...] Acute tonsillitis due to other specified organisms COMPREHENSIVE METABOLIC PANEL Routine 12/27/2024 4:09 PM CDT Nausea and vomiting, unspecified vomiting type CBC WITH DIFFERENTIAL Routine 12/27/2024 4:09 PM CDT Nausea and vomiting, unspecified vomiting type from Last 3 Months Results * THROAT CULTURE (03/15/2025 2:27 PM CDT) THROAT CULTURE SEE NOTE [facility] Comment: CULTURE, THROAT Micro Number: [id number] Test Status: Final Specimen Source: Throat Specimen Quality: Adequate Result: Heavy growth of Beta-hemolytic Streptococcus, not group A,C or G Beta-hemolytic streptococci are predictably susceptible to Penicillin and other beta-lactams. Susceptibility testing not routinely performed. Please contact the laboratory within 3 days if susceptibility testing is desired. COMMENT: Normal oropharyngeal tabby also present. Test Performed at: [email or web address] [address] [place] [address] Nirmal Mendez MD Upper Respiratory SPECIMEN FROM THROAT / Unknown 03/15/2025 2:27 PM CDT 03/16/2025 5:00 AM CDT Alexy Summers [facility] MICROBIOLOGY - GENERAL ORD ERABLES Final Result [facility] [phone] [email or web address] [address] [place] [address] * CBC WITH DIFFERENTIAL (12/27/2024 4:09 PM [...] [facility] Comment: Test Performed at: [email or web address] [address] [place] [address] Nirmal Mendez MD Blood 12/27/2024 4:09 PM CDT 12/29/2024 3:08 AM CDT Lynette Velazquez EXTRUDING DEPARTMENT SUPERVISOR HEMATOLOGY ORDERABLES Final Result [facility] [phone] [email or web address] [address] [place] [address] * COMPREHENSIVE METABOLIC PANEL (12/27/2024 4:09 PM CDT) GLUCOSE 84 65 - 99 mg/dL [facility] Comment: Fasting reference interval BUN 12 [...] [facility] Comment: Test Performed at: [email or web address] [address] [place] [address] Nirmal Mendez MD Blood 12/27/2024 4:09 PM CDT 12/29/2024 3:08 AM CDT Lynette Velazquez EXTRUDING DEPARTMENT SUPERVISOR CHEMISTRY ORDERABLES Final Result Performing Organization Address City/[facility] [[email or web address]] Co de Phone Number [facility] [phone] [facility] [address] [address], [place] [address] from Last 3 Months Insurance MEDICAID [place] MEDICAID [place] Care Teams Parent Trainer Relationship Specialty Start Date End Date Marielos Carrasco DO [address] [place] [address] PCP - General Family Practice 11/20/23
[2025-03-17 16:56] LABS: Glucose Urine UA Negative (Normal); Nitrate Urine Negative (Negative); Specific Gravity, Urine 1.023 (1.005-1.030)
[2025-03-17 17:01] LABS: Add Urine Microscopic? YES
[2025-03-17 17:28] LABS: Alanine Aminotransferase 16 U/L (0-33); Albumin Level 4.0 g/dL (3.5-5.2); Alkaline Phosphatase 78 U/L (35-105); Anion Gap 16.9 (5-19); Aspartate Amino Transferase 12 U/L (0-32); Blood Urea Nitrogen 9 mg/dL (6-20); Calcium 8.8 mg/dL (8.5-10.5); Carbon Dioxide 21 mmol/L (22-29); Chloride 106 mmol/L (98-107); Creatinine Clr Calc Pharmacy 183.3044; Globulin 2.9 g/dL (1.3-4.6); Glucose 85 mg/dL (65-115); Lipase 22 U/L (13-60); Osmolality Calculated 288 mOsm/kg (285-295); Potassium 3.9 mmol/L (3.5-5.1); Sodium 140 mmol/L (136-145); Total Protein 6.9 g/dL (6.6-8.7)
[2025-03-17 17:39] LABS: Hematocrit 39.6 % (36-47); Hemoglobin 13.90 g/dL (12.4-14.8); Mean Corpuscular HGB Conc 35.1 g/dL (30-55); Mean Corpuscular Hemoglobin 31.2 pg (27-33); Mean Corpuscular Volume 88.8 fl (85-98); Nucleated Red Blood Cells % 0 %; Platelet Count 285 10^3/cmm (157-399); Red Blood Count 4.46 10^6/uL (3.85-5.65); White Blood Count 9.78 10^3/uL (4.5-13.0)
[2025-03-17 17:40] LABS: Slide Review Slide Review Perform
[2025-03-17 17:43] LABS: UA Slide Review UA Slide Review Perf
== END 2025-03-17 18:06 | disposition home or self-care (01) ==
PROVIDERS: Emergency Provider Family Medicine
DX: N94.6 Dysmenorrhea, unspecified (principal); F17.290 Nicotine dependence, other tobacco product, uncomplicated
CPT/HCPCS: 36415; 74176; 80053; 81001; 83690; 85025; 87086; 96374; 99285; J1885

== ENCOUNTER 2025-04-14 19:21 | Emergency (ER) | payer MEDICAID, SELFPAY ==
[2025-04-14 19:22] VITALS: BP 134/85; PULSE 79; RESP 18; TEMP 36.7; O2SAT 97; BMI 41.8
--- NOTE | 2025-04-14 19:22 | XRR_ITS ---
PROCEDURE INFORMATION: Exam: XR Chest Exam date and time: 04/14/2025 8:05 PM Age: 19 years old Clinical indication: Pain; Angina pectoris; Additional info: Chest pain TECHNIQUE: Imaging protocol: Radiologic exam of the chest. Views: 1 view. COMPARISON: CT abdomen pelvis con [id number] 03/17/2025 3:53 PM FINDINGS: Lungs: Unremarkable. No consolidation. Pleural spaces: Unremarkable. No pleural effusion. No pneumothorax. Heart/Mediastinum: Unremarkable. No cardiomegaly. Bones/joints: Mild thoracolumbar scoliosis. XR/XR chest 1V portable [id number] IMPRESSION: No acute findings.
[2025-04-14 20:14] LABS: Hematocrit 42.4 % (36-47); Hemoglobin 14.00 g/dL (12.4-14.8); Mean Corpuscular HGB Conc 33.0 g/dL (30-55); Mean Corpuscular Hemoglobin 30.8 pg (27-33); Mean Corpuscular Volume 93.4 fl (85-98); Nucleated Red Blood Cells % 0 %; Platelet Count 357 10^3/cmm (157-399); Red Blood Count 4.54 10^6/uL (3.85-5.65); White Blood Count 9.22 10^3/uL (4.5-13.0)
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
--- NOTE | 2025-04-14 20:30 | ECG_ITS ---
[facility] Date: 2025-04[facility]14 Pat Name: Cassia Matthews Department: Room: Gender: Female Pet Counselor: : 2005 Requested By: Franchesca Hooper Order Number: [id number] Tayla MD: Gris Flower M.D. Measurements Intervals [place] Rate: 67 P: 5 WI: 188 QRS: 50 QRSD: 90 T: 25 QT: 371 QTc: 393 Interpretive Statements SINUS RHYTHM WITH MARKED SINUS ARRHYTHMIA No previous ECG available for comparison Electronically Signed On 04-15-2025 15:24:15 CDT by Gris Flower M.D. [email or web address]
[2025-04-14 20:36] LABS: Alanine Aminotransferase 21 U/L (0-33); Albumin Level 4.7 g/dL (3.5-5.2); Alkaline Phosphatase 85 U/L (35-105); Anion Gap 17.8 (5-19); Aspartate Amino Transferase 14 U/L (0-32); Blood Urea Nitrogen 12 mg/dL (6-20); Calcium 9.2 mg/dL (8.5-10.5); Carbon Dioxide 24 mmol/L (22-29); Chloride 102 mmol/L (98-107); Creatinine Clr Calc Pharmacy 156.0171; Globulin 3.1 g/dL (1.3-4.6); Glucose 109 mg/dL (65-115); Osmolality Calculated 290 mOsm/kg (285-295); Potassium 3.8 mmol/L (3.5-5.1); Sodium 140 mmol/L (136-145); Total Protein 7.8 g/dL (6.6-8.7)
[2025-04-14 20:45] VITALS: BP 131/93; PULSE 84; O2SAT 98
[2025-04-14 20:47] LABS: Lipase 22 U/L (13-60)
[2025-04-14 21:02] LABS: Glucose Urine UA Negative (Normal); HCG Qualitative Urine. Negative (Negative); Nitrate Urine Negative (Negative); Specific Gravity, Urine 1.023 (1.005-1.030)
[2025-04-14 21:07] LABS: Add Urine Microscopic? YES
[2025-04-14 22:00] VITALS: BP 140/92; PULSE 85; RESP 18; O2SAT 99
--- NOTE | 2025-04-14 22:10 | PC.NURSE ---
Pt has had no emesis while in ER room.
[2025-04-14 22:40] VITALS: BP 142/107; PULSE 80; O2SAT 98
== END 2025-04-14 22:40 | disposition home or self-care (01) ==
PROVIDERS: Emergency Medicine; Emergency Provider Emergency Medicine
DX: R11.2 Nausea with vomiting, unspecified (principal); F17.290 Nicotine dependence, other tobacco product, uncomplicated
CPT/HCPCS: 36415; 36416; 71045; 80053; 81001; 81025; 82962; 83690; 85025; 93005; 99285